=== PATIENT | male | born 1970 | race Caucasian/White ===

== ENCOUNTER 2018-03-23 10:41 | Inpatient (IN) | payer BC, OTHER ==
[2018-03-23 11:01] VITALS: BMI 25.0
[2018-03-23] MEDS ORDERED: Sodium Chloride 0.9% 1,000 ML IV STA (11:49)
[2018-03-23] MEDS ORDERED: cefTRIAXone IV 1 gm in Dextros 50 ML IVPB ONE (12:15)
[2018-03-23] MEDS ORDERED: Sodium Chloride 0.9% 1,000 ML ONE (12:15)
[2018-03-23 12:17] LABS: BASO # 0.1 K/uL (0.0-0.2); BASO % 0.8 % (0.0-2.0); EOS % 0.2 % (0.0-4.0); HEMOGLOBIN 13.1 g/dL (12.0-18.0); LYMPH % 6.8 % (20.0-40.0); MEAN CELL VOLUME 82.1 fL (80.0-94.0); MEAN CORPUSCULAR HEMOGLOBIN 27.8 pg (27.0-31.0); MEAN CORPUSCULAR HGB CONC 33.9 g/dL (33.0-37.0); MEAN PLATELET VOLUME 7.9 fL (7.2-11.7); MONO # 1.3 K/uL (0.0-0.8); MONO % 8.9 % (0.0-10.0); NEUT # 12.4 K/uL (1.8-7.0); NEUT % 83.3 % (50.0-75.0); PLATELET COUNT 329 K/uL (130-400); RBC 4.71 Mil/uL (4.40-5.90); RED CELL DISTRIBUTION WIDTH 13.2 % (11.5-14.5); WHITE BLOOD COUNT 14.9 K/uL (4.8-10.8)
--- NOTE | 2018-03-23 12:29 | C.PDOC ---
History Of Present Illness 47yo male, comes to ER stating for the past 2 weeks he has had dysuria, lower abdominal pain and testicular discomfort. Patient states he was evaluated by his urologist Dr. Curran and was prescribed bactrim. Patient took bactrim with no relief of symptoms. He states since yesterday, he has had fever, nausea and right flank pain. Patient denies any vomiting, diarrhea, hematuria and offers no additional complaints. Time Seen by Provider: 03/23/18 11:35 Chief Complaint (Nursing): Male Genitourinary History Per: Patient History/Exam Limitations: no limitations Onset/Duration Of Symptoms: Persistent Current Symptoms Are (Timing): Still Present Quality Of Discomfort: "Pain" Associated Symptoms: Fever, Urinary Symptoms. denies: Vomiting, Diarrhea Additional History Per: Patient Past Medical History Reviewed: Historical Data, Nursing Documentation, Vital Signs Vital Signs: Last Vital Signs Temp 98.5 F 03/23/18 15:44 Pulse 104 H 03/23/18 15:44 Resp 20 03/23/18 15:44 BP 138/78 03/23/18 15:44 Pulse Ox 98 03/23/18 16:08 - Medical History PMH: No Chronic Diseases Surgical History: No Surg Hx Family History: States: No Known Family Hx - Social History Hx Alcohol Use: No Hx Substance Use: No - Immunization History Hx Tetanus Toxoid Vaccination: No Hx Influenza Vaccination: No Hx Pneumococcal Vaccination: No Review Of Systems Except As Marked, All Systems Reviewed And Found Negative. Constitutional: Positive for: Fever Gastrointestinal: Positive for: Abdominal Pain. Negative for: Vomiting, Diarrhea Genitourinary: Positive for: Dysuria. Negative for: Frequency, Hematuria Physical Exam - Physical Exam Appears: Non-toxic, No Acute Distress Skin: Warm, Dry Head: Atraumatic, Normacephalic Eye(s): bilateral: Normal Inspection Neck: Normal ROM, Supple Chest: Symmetrical Cardiovascular: Rhythm Regular Respiratory: Normal Breath Sounds Gastrointestinal/Abdominal: Soft, No Tenderness, No Guarding, No Rebound Back: CVA Tenderness (right), No Vertebral Tenderness Extremity: Normal ROM, No Pedal Edema Neurological/Psych: Oriented x3, Normal Speech, Normal Cognition, Normal Motor, Normal Sensation ED Course And Treatment - Laboratory Results Result Diagrams: 03/23/18 12:12 03/23/18 12:12 O2 Sat by Pulse Oximetry: 98 (RA) Pulse Ox Interpretation: Normal - CT Scan/US Renal US Other Rad Studies (CT/US): Radiology Report Reviewed CT/US Interpretation: FINDINGS: RIGHT KIDNEY: Measures: 15.1 x 6.2 x 7.7 cm. Normal in size, contour and echogenicity. No stone, solid mass lesion or hydronephrosis visualized. LEFT KIDNEY: Measures: 13.6 x 7.0 x 8.1 cm. Normal in size, contour and echogenicity. No stone, solid mass lesion or hydronephrosis visualized. OTHER FINDINGS: Urinary bladder is decompressed. IMPRESSION: Unremarkable renal sonogram. Testicular US Other Rad Studies (CT/US): Radiology Report Reviewed CT/US Interpretation: FINDINGS: RIGHT TESTICLE: Measures 4.3 x 1.9 x 2.9 cm. Normal echotexture and flow. RIGHT EPIDIDYMIS: Epididymal head measures 0.8 x 0.7 x 1.1 cm. Grossly unremarkable appearance with normal flow. LEFT TESTICLE: Measures 4.1 x 2.2 x 2.7 cm. Normal echotexture and flow. LEFT EPIDIDYMIS: Epididymal head measures 0.9 x 0.4 x 1.1 cm. Grossly unremarkable appearance with normal flow. HYDROCELE: None. VARICOCELE: None. OTHER FINDINGS: None. IMPRESSION: Unremarkable scrotal ultrasound examination. No evidence of testicular torsion bilaterally. Progress Note: Labs and UA ordered; blood and urine culture sent. Renal US and Testicular US ordered. Patient given IV Fluids, IV Rocephin and Tylenol PO. Case was d/w Urologist who agreed with tx with Rocephin and [facility] case was d/w Hospitalist who accepted patient for observation to [place]. Disposition - Disposition Disposition: HOSPITALIZED Disposition Time: 14:38 Condition: STABLE - Clinical Impression Clinical Impression: Pyelonephritis - PA / FINANCE OFFICER / Resident Statement MD/DO has reviewed & agrees with the documentation as recorded. - Scribe Statement The provider has reviewed the documentation as recorded by the Eloisae Celestina Silva Provider Attestation: All medical record entries made by the Scribe were at my direction and personally dictated by me. I have reviewed the chart and agree that the record accurately reflects my personal performance of the history, physical exam, medical decision making, and the department course for this patient. I have also personally directed, reviewed, and agree with the discharge instructions and disposition. Decision To Admit - Pt Status Changed To: Hospital Disposition Of: Observation - . Bed Request Type: Regular Admitting Physician: Ursula Dominguez Patient Diagnosis: Pyelonephritis
[2018-03-23 12:38] LABS: BANDS 4 % (0-2); LYMPHOCYTE 5 % (20-40); MONOCYTE 9 % (0-10); NEUTROPHIL 82 % (50-75); PLATELET ESTIMATE NORMAL (NORMAL); TOTAL CELLS COUNTED 100
[2018-03-23 12:40] LABS: SQUAMOUS EPITHIAL < 1 /hpf (0-5); URINE BACTERIA OCC (<OCC); URINE BILIRUBIN NEGATIVE (NEGATIVE); URINE BLOOD NEGATIVE (NEGATIVE); URINE CLARITY Hazy (Clear); URINE COLOR Yellow (YELLOW); URINE GLUCOSE (UA) 3+ mg/dL (Normal); URINE LEUKOCYTE ESTERASE 3+ Leu/uL (Negative); URINE PROTEIN 1+ mg/dL (NEGATIVE); URINE UROBILINOGEN NORMAL mg/dL (0.2-1.0)
[2018-03-23 12:48] LABS: ALB/GLOB RATIO 1.2 (1.0-2.1); ALBUMIN 4.3 g/dL (3.5-5.0); ALT/SGPT 35 U/L (21-72); AST/SGOT 23 U/L (17-59); BLOOD UREA NITROGEN 6 mg/dL (9-20); CALCIUM 9.4 mg/dl (8.6-10.4); GFR AFRICAN-AMERICAN > 60; GFR NON-AFRICAN AMERICAN > 60; LIPASE 98 U/L (23-300)
--- NOTE | 2018-03-23 13:40 | US ---
Date of service: 03/23/2018 HISTORY: scrotal pain TECHNIQUE: Realtime sonography through the scrotum with color and doppler flow. COMPARISON: None Available. FINDINGS: RIGHT TESTICLE: Measures 4.3 x 1.9 x 2.9 cm. Normal echotexture and flow. RIGHT EPIDIDYMIS: Epididymal head measures 0.8 x 0.7 x 1.1 cm. Grossly unremarkable appearance with normal flow. LEFT TESTICLE: Measures 4.1 x 2.2 x 2.7 cm. Normal echotexture and flow. LEFT EPIDIDYMIS: Epididymal head measures 0.9 x 0.4 x 1.1 cm. Grossly unremarkable appearance with normal flow. HYDROCELE: None. VARICOCELE: None. OTHER FINDINGS: None. IMPRESSION: Unremarkable scrotal ultrasound examination. No evidence of testicular torsion bilaterally.
--- NOTE | 2018-03-23 13:42 | US ---
Date of service: 03/23/2018 PROCEDURE: Ultrasound of the Kidneys HISTORY: right flank pain/fever/testicular pain COMPARISON: None available. TECHNIQUE: Sonogram of the kidneys. FINDINGS: RIGHT KIDNEY: Measures: 15.1 x 6.2 x 7.7 cm. Normal in size, contour and echogenicity. No stone, solid mass lesion or hydronephrosis visualized. LEFT KIDNEY: Measures: 13.6 x 7.0 x 8.1 cm. Normal in size, contour and echogenicity. No stone, solid mass lesion or hydronephrosis visualized. OTHER FINDINGS: Urinary bladder is decompressed. IMPRESSION: Unremarkable renal sonogram.
--- NOTE | 2018-03-23 15:11 | CARD ---
APPROVED REPORT Date of service: 03/23/2018 EKG Measurement Heart [id number] <Conclusion> Sinus tachycardia Otherwise normal ECG
[2018-03-23 15:25] LABS: VENOUS BLOOD GAS BASE EXCESS 0.3 mmol/L (0.0-2.0); VENOUS BLOOD GAS PCO2 42 mmHg (40-60); VENOUS BLOOD GAS PO2 26 mm/Hg (30-55); VENOUS BLOOD PH 7.39 (7.32-7.43)
[2018-03-23] MEDS ORDERED: Morphine 4 MG/ML VIAL ONE (15:44)
[2018-03-23 15:45] VITALS: RESP 20
--- NOTE | 2018-03-23 15:45 | CP.PCM.HP ---
History of Present Illness - History of Present Illness History of Present Illness: CC: kidney pain 47 year old male with history of type II diabetes presents to ED with right flank pain. Patient states that he started experiencing pain on urination 2 weeks ago, as well as increased urinary frequency. After experiencing a week of this pain, patient went to see his PMD, Dr. Wesley Curran. This physician prescribed Bactrim 800-160 BID for 10 days. Patient came in today because last night he woke up many times to urinate and has been unable to sleep for the past several days. Patient now describes the pain as 10/10 right sided flank pain, nonradiating that is constant and feels worse after urination. Patient notes that he has had 2 additional UTIs in the past year, with this as the third episode. Patient reports episodes of tingling in lower extremity that has been present for last 4 months. He has been unable to follow up with his consulting psychiatrist (who he normally sees every 3 months), because he no longer has insurance coverage and is currently unemployed. PMH: DM II PSH: repair or ureterovesicular fistulas X2 FHx: Father-CVD ( at 70yo), HTN, DM Mother- HTN, DM Social Hx: denies tobacco, EtOH, Drug use; lives at home with . Currently unemplyed, used to be a cook. PMD: Dr. Chen Code status: full code Review of Systems Pertinent Positives: Fever, chills, weakness, headache, dizziness, tachycardia, dysuria, urinary freq, LE paresthesia, easy bruising/bleeding, orthostasis, reduced appetite due to pain, 10lb weight loss, chronic vision changes Pertinent Negatives: chest pain, palpitations, dyspnea, sore throat, abd pain, nausea/vomiting, diarrhea, constipation, Present on Admission - Present on Admission Any Indicators Present on Admission: No Review of Systems - Constitutional Constitutional: Chills, Fever, Headache, Weight Loss, Weakness. absent: Increased Appetite - EENT Eyes: Change in Vision. absent: Pain Ears: Dizziness. absent: Tinnitus Nose/Mouth/Throat: absent: Dry Mouth, Sore Throat - Cardiovascular Cardiovascular: Orthopnea, Rapid Heart Rate. absent: Chest Pain, Dyspnea, Lightheadedness, Palpitations, Pedal Edema - Respiratory Respiratory: absent: Cough, Dyspnea, Wheezing - Gastrointestinal Gastrointestinal: absent: Abdominal Pain, Constipation, Diarrhea, Nausea, Vomiting - Genitourinary Genitourinary: Dysuria, Urinary Frequency, Freq UTI - Musculoskeletal Musculoskeletal: Tingling. absent: Back Pain, Numbness - Integumentary Integumentary: absent: Rash, Skin Ulcer, Jaundice - Neurological Neurological: Tingling, Weakness. absent: Dizziness, Loss of Vision, Syncope - Psychiatric Psychiatric: absent: Anxiety, Confusion Past Patient History - Past Social History Smoking Status: Never Smoked - ENDOCRINE/METABOLIC Hx Endocrine Disorders: Yes Hx Diabetes Mellitus Type 2: Yes - GENITOURINARY/GYNECOLOGICAL Hx Genitourinary Disorders: Yes Other/Comment: kidney problems - PSYCHIATRIC Hx Substance Use: No - SURGICAL HISTORY Hx Surgeries: No Meds Allergies/Adverse Reactions: Allergies Allergy/AdvReac Type Severity Reaction Status Date / Time No Known Allergies Allergy Verified 03/23/18 11:00 Physical Exam - Constitutional Appears: Non-toxic, No Acute Distress - Head Exam Head Exam: NORMAL INSPECTION, NORMOCEPHALIC - Eye Exam Eye Exam: EOMI, Normal appearance. absent: Nystagmus, Scleral icterus Pupil Exam: NORMAL ACCOMODATION - ENT Exam ENT Exam: Mucous Membranes Moist, Normal Exam - Neck Exam Neck exam: Positive for: Normal Inspection. Negative for: Lymphadenopathy, Tenderness, Thyromegaly - Respiratory Exam Respiratory Exam: Clear to Auscultation Bilateral, NORMAL BREATHING PATTERN. absent: Rales, Wheezes - Cardiovascular Exam Cardiovascular Exam: Tachycardia, REGULAR RHYTHM, +S1, +S2 - GI/Abdominal Exam GI & Abdominal Exam: Normal Bowel Sounds, Soft. absent: Distended, Firm, Tenderness - Extremities Exam Extremities exam: Positive for: normal inspection. Negative for: calf tenderness, pedal edema - Back Exam Back exam: CVA tenderness (R), NORMAL INSPECTION. absent: CVA tenderness (L), vertebral tenderness - Neurological Exam Neurological exam: Alert, CN II-XII Intact, Oriented x3 - Skin Skin Exam: Intact, Normal Color Results - Vital Signs Recent Vital Signs: Last Vital Signs Temp 97.4 F L 03/23/18 13:57 Pulse 116 H 03/23/18 11:01 Resp 18 03/23/18 11:01 BP 122/72 03/23/18 11:01 Pulse Ox 98 03/23/18 15:12 - Labs Result Diagrams: 03/23/18 12:12 03/23/18 12:12 Labs: Laboratory Results - last 24 hr 03/23/18 03/23/18 03/23/18 12:12 12:12 12:12 WBC 14.9 H RBC 4.71 Hgb 13.1 Hct 38.7 MCV 82.1 MCH 27.8 MCHC 33.9 RDW 13.2 Plt Count 329 MPV 7.9 Neut % (Auto) 83.3 H Lymph % (Auto) 6.8 L [place] % (Auto) 8.9 Eos % (Auto) 0.2 Baso % (Auto) 0.8 Neut # (Auto) 12.4 H Lymph # (Auto) 1.0 [place] # (Auto) 1.3 H Eos # (Auto) 0.0 Baso # (Auto) 0.1 Neutrophils % (Manual) 82 H Band Neutrophils % 4 H Lymphocytes % (Manual) 5 L Monocytes % (Manual) 9 Platelet Estimate Normal RBC Morphology Normal pO2 VBG pH VBG pCO2 VBG HCO3 VBG Total CO2 VBG O2 Sat (Calc) VBG Base Excess VBG Potassium Glucose Lactate Sodium 136 Potassium 3.7 Chloride 96 L Carbon Dioxide 25 Anion Gap 18 BUN 6 L Creatinine 0.5 L Est GFR ( Amer) > 60 Est GFR (Non-Af Amer) > 60 Random Glucose 266 H Calcium 9.4 Total Bilirubin 0.8 AST 23 ALT 35 Alkaline Phosphatase 168 H Total Protein 8.0 Albumin 4.3 Globulin 3.7 Albumin/Globulin Ratio 1.2 Lipase 98 Venous Blood Potassium Urine Color Yellow Urine Clarity Hazy Urine pH 6.0 Ur Specific [place] 1.017 Urine Protein 1+ H Urine Glucose (UA) 3+ H Urine Ketones 1+ H Urine Blood Negative Urine Nitrate Negative Urine Bilirubin Negative Urine Urobilinogen Normal Ur Leukocyte Esterase 3+ H Urine WBC (Auto) 568 H Urine RBC (Auto) 5 H Ur Squamous Epith Cells < 1 Urine Bacteria Occ H 03/23/18 15:21 WBC RBC Hgb Hct MCV MCH MCHC RDW Plt Count MPV Neut % (Auto) Lymph % (Auto) [place] % (Auto) Eos % (Auto) Baso % (Auto) Neut # (Auto) Lymph # (Auto) [place] # (Auto) Eos # (Auto) Baso # (Auto) Neutrophils % (Manual) Band Neutrophils % Lymphocytes % (Manual) Monocytes % (Manual) Platelet Estimate RBC Morphology pO2 26 L VBG pH 7.39 VBG pCO2 42 VBG HCO3 23.8 VBG Total CO2 26.7 VBG O2 Sat (Calc) 54.1 VBG Base Excess 0.3 VBG Potassium 3.8 Glucose 241 H Lactate 1.0 Sodium 136.0 Potassium Chloride 103.0 Carbon Dioxide Anion Gap BUN Creatinine Est GFR ( Amer) Est GFR (Non-Af Amer) Random Glucose Calcium Total Bilirubin AST ALT Alkaline Phosphatase Total Protein Albumin Globulin Albumin/Globulin Ratio Lipase Venous Blood Potassium 3.8 Urine Color Urine Clarity Urine pH Ur Specific [place] Urine Protein Urine Glucose (UA) Urine Ketones Urine Blood Urine Nitrate Urine Bilirubin Urine Urobilinogen Ur Leukocyte Esterase Urine WBC (Auto) Urine RBC (Auto) Ur Squamous Epith Cells Urine Bacteria Assessment & Plan - Assessment and Plan (Free Text) Plan: Sepsis On admission WBC 14.9; HR 116; T 101.5 UA: 1+ protein, 3+ glucose, 1+ ketones, 3+ leukocyte esterase, WBC 568, Urine bacteria- occ bacteria Likely pyelo>>UTI (with fever and flank tenderness R>L) Renal U/S- unremarkable Testicular U/S- unremarkable; no evidence of torsion bilaterally 1L NS 125 cc/hr Ciprofloxacin 400mg IVPB q12 shana Urine Cultures pending; Blood cultures pending Tylenol 650mg po q6 prn 1x dose 1gram 100mls/hr Ceftriaxone 1x dose Tylenol 650mg po 1 bolus of 1L NS 1x dose 4mg of morphine IVP Diabetes Mellitus ISS low dose ACHS Accuchecks Hypoglycemic protocol Hold Metformin; Carb diet Prophylaxis Heparin SC 5000 units q8h GI PPx: not indicated at this time
[2018-03-23] MEDS ORDERED: Dextrose 50% SYRINGE Inj (50 ml) IV PRN (16:25)
[2018-03-23] MEDS ORDERED: Glucagon Recombinant 1 mg Inj IM PRN (16:25)
[2018-03-23] MEDS: Ciprofloxacin 400mg/200ml D5W 400 MG/200 ML BAG IVPB SCH (16:42)
[2018-03-23] MEDS: (Novolog) Insulin Aspart, Recombinant 100 u/ml 10 ml vial SC SCH ×2 (16:50→21:59)
[2018-03-23] MEDS: Sodium Chloride 0.9% 1,000 ML IV SCH (17:00)
[2018-03-24] MEDS: Sodium Chloride 0.9% 1,000 ML IV SCH ×4 (00:45→17:01)
[2018-03-24] MEDS: Ciprofloxacin 400mg/200ml D5W 400 MG/200 ML BAG IVPB SCH ×2 (04:28→17:02)
[2018-03-24 07:25] LABS: BASO # 0.1 K/uL (0.0-0.2); BASO % 0.5 % (0.0-2.0); EOS % 0.1 % (0.0-4.0); HEMOGLOBIN 12.5 g/dL (12.0-18.0); LYMPH # 1.5 K/uL (1.0-4.3); LYMPH % 14.5 % (20.0-40.0); MEAN CELL VOLUME 81.8 fL (80.0-94.0); MEAN CORPUSCULAR HGB CONC 34.3 g/dL (33.0-37.0); MEAN PLATELET VOLUME 8.2 fL (7.2-11.7); MONO # 0.9 K/uL (0.0-0.8); MONO % 8.9 % (0.0-10.0); NEUT # 8.1 K/uL (1.8-7.0); RBC 4.47 Mil/uL (4.40-5.90); WHITE BLOOD COUNT 10.6 K/uL (4.8-10.8)
[2018-03-24 07:33] LABS: ALB/GLOB RATIO 1.1 (1.0-2.1); ALBUMIN 3.5 g/dL (3.5-5.0); ALT/SGPT 37 U/L (21-72); AST/SGOT 27 U/L (17-59); BLOOD UREA NITROGEN 5 mg/dL (9-20); CALCIUM 8.6 mg/dl (8.6-10.4); GFR AFRICAN-AMERICAN > 60; GFR NON-AFRICAN AMERICAN > 60
[2018-03-24] MEDS: (Novolog) Insulin Aspart, Recombinant 100 u/ml 10 ml vial SC SCH ×4 (08:16→21:54)
--- NOTE | 2018-03-24 10:40 | CP.PCM.PN ---
Subjective - Date & Time of Evaluation Date of Evaluation: 03/24/18 Time of Evaluation: 10:37 - Subjective Subjective: PGY-1 Medicine Progress Note Patient seen and examined at bedside. Patient reports fever overnight was given Tylenol and is afebrile currently. Patient reports right flank but reduced from 10/10 being constant in nature to 7/10 with periodic pain. Patient reports increased urinary frequency with 7 trips to the bathroom overnight but states the dysuria has improved. Patient reports fevers and chills however denies chest pain, sob, nausea/vomiting, headaches, constipation or diarrhea. Objective - Vital Signs/Intake and Output Vital Signs (last 24 hours): Temp Pulse Resp BP Pulse Ox 98.7 F 100 H 20 112/71 96 03/24/18 07:00 03/24/18 07:00 03/24/18 07:00 03/24/18 07:00 03/24/18 07:00 Intake and Output: 03/24/18 03/24/18 06:59 18:59 Intake Total 1250 Balance 1250 - Medications Medications: Current Medications Acetaminophen (Tylenol 325mg Tab) 650 mg PO Q6 PRN PRN Reason: Fever >100.4 F Last Admin: 03/24/18 08:20 Dose: 650 mg Dextrose (Dextrose 50% Inj) 0 ml IV STAT PRN; Protocol PRN Reason: Hypoglycemia Protocol Dextrose (Glutose 15) 0 gm PO ONCE PRN; Protocol PRN Reason: Hypoglycemia Protocol Glucagon (Glucagen Diagnostic Kit) 0 mg IM STAT PRN; Protocol PRN Reason: Hypoglycemia Protocol Heparin Sodium (Porcine) (Heparin) 5,000 units SC Q8 [facility] Last Admin: 03/24/18 06:02 Dose: 5,000 units Ciprofloxacin (Cipro 400mg/200ml Dsw) 400 mg in 200 mls @ 133 mls/hr IVPB Q12H [facility]NA PRN Reason: Protocol Last Admin: 03/24/18 04:28 Dose: 133 mls/hr Dextrose (Dextrose 5% In Water 1000 Ml) 1,000 mls @ 0 mls/hr IV .Q0M PRN; Protocol; Per Protocol PRN Reason: Hypoglycemia Protocol Sodium Chloride (Sodium Chloride 0.9%) 1,000 mls @ 125 mls/hr IV .Q8H [facility] Last Admin: 03/24/18 08:17 Dose: Not Given Insulin Aspart (Novolog) 0 unit SC ACHS [facility] PRN Reason: Protocol Last Admin: 03/24/18 08:16 Dose: 3 units Pneumococcal Polyvalent Vaccine (Pneumovax 23 Vaccine) 0.5 ml IM .ONCE ONE Stop: 03/25/18 10:01 - Labs Labs: 03/24/18 07:15 03/24/18 07:15 APTT 35 SECONDS (21-34) H 03/24/18 07:15 - Constitutional Appears: Non-toxic, No Acute Distress - Head Exam Head Exam: NORMAL INSPECTION, NORMOCEPHALIC - Eye Exam Eye Exam: EOMI, Normal appearance. absent: Nystagmus, Scleral icterus - Respiratory Exam Respiratory Exam: Clear to Ausculation Bilateral, NORMAL BREATHING PATTERN. absent: Wheezes, Respiratory Distress - Cardiovascular Exam Cardiovascular Exam: Tachycardia, REGULAR RHYTHM, +S1, +S2. absent: Murmur - GI/Abdominal Exam GI & Abdominal Exam: Soft, Normal Bowel Sounds. absent: Distended, Firm, Tenderness - Extremities Exam Extremities Exam: Normal Inspection. absent: Calf Tenderness, Pedal Edema - Back Exam Back Exam: CVA tenderness (R), NORMAL INSPECTION. absent: CVA tenderness (L), vertebral tenderness - Neurological Exam Neurological Exam: Alert, Awake, Oriented x3. absent: Normal Gait - Psychiatric Exam Psychiatric exam: Normal Affect, Normal Mood - Skin Skin Exam: Intact, Normal Color Assessment and Plan - Assessment and Plan (Free Text) Assessment: Patient is a 47 y.o male with PMH of DM2 and 2 episodes of UTI in past year; patient has been having UTI symptoms for 2 weeks with burning sensation and increased frequency; went to see urologist a week ago was prescribed bactrim for outpatient treatment; symptoms did not resolved for 1 week with progressively increasing dysuria with burning sensation prompting the patient to come to the hospital Plan: Pyelonephritis Does not meet sepsis criteria currently; On admission WBC 14.9; HR 116; T 101.5 WBC 10.6 (14.6 on 03/23/18() UA: 1+ protein, 3+ glucose, 1+ ketones, 3+ leukocyte esterase, WBC 568, Urine bacteria- occ bacteria Renal U/S- unremarkable Testicular U/S- unremarkable; no evidence of torsion bilaterally Continue Ciprofloxacin 400mg IVPB q12 shana; WBC trending down; patient clinically improving Urine cultures pending Blood cultures prelim read- gram negative rods Diabetes Meillitus A1C pending ISS low dose ACHS Accuchecks Hypoglycemic protocol Hold Metformin in setting of pyelonephritis; Carb diet Fever Afebrile currently Tylenol 650mg po q6 prn Prophylaxis Heparin SC 5000 units q8h GI PPx: not indicated at this time Medical Management discussed with Dr. Smith
[2018-03-25] MEDS: Sodium Chloride 0.9% 1,000 ML IV SCH ×5 (00:30→16:30)
[2018-03-25] MEDS: Ciprofloxacin 400mg/200ml D5W 400 MG/200 ML BAG IVPB SCH ×2 (04:10→16:35)
[2018-03-25 07:45] LABS: BASO % 0.7 % (0.0-2.0); EOS # 0.1 K/uL (0.0-0.7); EOS % 2.2 % (0.0-4.0); HEMOGLOBIN 12.2 g/dL (12.0-18.0); LYMPH # 1.5 K/uL (1.0-4.3); MEAN CELL VOLUME 82.5 fL (80.0-94.0); MEAN CORPUSCULAR HEMOGLOBIN 28.2 pg (27.0-31.0); MEAN CORPUSCULAR HGB CONC 34.2 g/dL (33.0-37.0); MEAN PLATELET VOLUME 7.9 fL (7.2-11.7); MONO # 0.8 K/uL (0.0-0.8); MONO % 13.9 % (0.0-10.0); NEUT # 3.5 K/uL (1.8-7.0); NEUT % 58.2 % (50.0-75.0); RBC 4.32 Mil/uL (4.40-5.90); RED CELL DISTRIBUTION WIDTH 12.7 % (11.5-14.5); WHITE BLOOD COUNT 6.1 K/uL (4.8-10.8)
[2018-03-25 07:59] LABS: ALB/GLOB RATIO 1.1 (1.0-2.1); ALBUMIN 3.4 g/dL (3.5-5.0); ALT/SGPT 58 U/L (21-72); AST/SGOT 45 U/L (17-59); BLOOD UREA NITROGEN 5 mg/dL (9-20); CALCIUM 8.6 mg/dl (8.6-10.4); GFR AFRICAN-AMERICAN > 60; GFR NON-AFRICAN AMERICAN > 60
[2018-03-25] MEDS: (Novolog) Insulin Aspart, Recombinant 100 u/ml 10 ml vial SC SCH ×4 (08:30→22:22)
[2018-03-25] MEDS ORDERED: Pneumococcal 23-Valent Vaccine IM ONE (10:00)
[2018-03-25] MEDS ORDERED: Glucagon Recombinant 1 mg Inj IM PRN (12:47)
[2018-03-25] MEDS ORDERED: Dextrose 50% SYRINGE Inj (50 ml) IV PRN (12:47)
--- NOTE | 2018-03-25 12:56 | CP.PCM.PN ---
<Janis Ortega - Last Filed: 03/25/18 16:08> Subjective - Date & Time of Evaluation Date of Evaluation: 03/25/18 Time of Evaluation: 12:50 - Subjective Subjective: PGY-1 Medicine Progress Note for Dr. Smith's service Patient seen and examined at bedside. Patient reports improved right flank pain from 6 to 3/10 today. Patient reports no burning with urination however still reports nocturia of 3 episodes last night. Patient denies hematuria, chest pain , shortness of breath, n/v, constipation or diarrhea, and dysuria. No acute events overnight as per nursing. Objective - Vital Signs/Intake and Output Vital Signs (last 24 hours): Temp Pulse Resp BP Pulse Ox 98.2 F 85 20 108/70 98 03/25/18 07:55 03/25/18 07:55 03/25/18 07:55 03/25/18 07:55 03/25/18 07:55 Intake and Output: 03/25/18 03/25/18 06:59 18:59 Intake Total 400 Balance 400 - Medications Medications: Current Medications Acetaminophen (Tylenol 325mg Tab) 650 mg PO Q6 PRN PRN Reason: Fever >100.4 F Last Admin: 03/24/18 08:20 Dose: 650 mg Acetaminophen (Tylenol 325mg Tab) 650 mg PO Q6 PRN PRN Reason: Pain, moderate (4-7) Last Admin: 03/24/18 22:36 Dose: 650 mg Dextrose (Dextrose 50% Inj) 0 ml IV STAT PRN; Protocol PRN Reason: Hypoglycemia Protocol Dextrose (Glutose 15) 0 gm PO ONCE PRN; Protocol PRN Reason: Hypoglycemia Protocol Dextrose (Dextrose 50% Inj) 0 ml IV STAT PRN; Protocol PRN Reason: Hypoglycemia Protocol Dextrose (Glutose 15) 0 gm PO ONCE PRN; Protocol PRN Reason: Hypoglycemia Protocol Glucagon (Glucagen Diagnostic Kit) 0 mg IM STAT PRN; Protocol PRN Reason: Hypoglycemia Protocol Glucagon (Glucagen Diagnostic Kit) 0 mg IM STAT PRN; Protocol PRN Reason: Hypoglycemia Protocol Heparin Sodium (Porcine) (Heparin) 5,000 units SC Q8 SHANA Last Admin: 03/25/18 05:27 Dose: 5,000 units Ciprofloxacin (Cipro 400mg/200ml Dsw) 400 mg in 200 mls @ 133 mls/hr IVPB Q12H SHANA PRN Reason: Protocol Last Admin: 03/25/18 04:10 Dose: 133 mls/hr Dextrose (Dextrose 5% In Water 1000 Ml) 1,000 mls @ 0 mls/hr IV .Q0M PRN; Protocol; Per Protocol PRN Reason: Hypoglycemia Protocol Sodium Chloride (Sodium Chloride 0.9%) 1,000 mls @ 125 mls/hr IV .Q8H [facility] Last Admin: 03/25/18 08:31 Dose: Not Given Dextrose (Dextrose 5% In Water 1000 Ml) 1,000 mls @ 0 mls/hr IV .Q0M PRN; Protocol; Per Protocol PRN Reason: Hypoglycemia Protocol Insulin Aspart (Novolog) 0 unit SC ACHS [facility] PRN Reason: Protocol Last Admin: 03/25/18 12:02 Dose: 3 units Insulin Human Regular (Novolin R) 0 unit SC ACHS [facility] PRN Reason: Protocol - Labs Labs: 03/25/18 07:28 03/25/18 07:28 APTT 35 SECONDS (21-34) H 03/24/18 07:15 - Constitutional Appears: Non-toxic, No Acute Distress - Head Exam Head Exam: NORMAL INSPECTION, NORMOCEPHALIC - Eye Exam Eye Exam: EOMI, Normal appearance. absent: Nystagmus, Scleral icterus - Respiratory Exam Respiratory Exam: Clear to Ausculation Bilateral, Wheezes, NORMAL BREATHING PATTERN. absent: Decreased Breath Sounds, Rales (/), Respiratory Distress - Cardiovascular Exam Cardiovascular Exam: REGULAR RHYTHM, +S1, +S2. absent: Murmur - GI/Abdominal Exam GI & Abdominal Exam: Soft, Normal Bowel Sounds. absent: Distended, Firm, Guarding, Tenderness - Extremities Exam Extremities Exam: Normal Inspection. absent: Calf Tenderness, Pedal Edema - Back Exam Back Exam: CVA tenderness (R), NORMAL INSPECTION. absent: CVA tenderness (L) - Neurological Exam Neurological Exam: Alert, Awake, Oriented x3 - Psychiatric Exam Psychiatric exam: Normal Affect, Normal Mood - Skin Skin Exam: Intact, Normal Color. absent: Rash Assessment and Plan - Assessment and Plan (Free Text) Assessment: Patient is a 47 y.o male with PMH of DM2 and 2 episodes of UTI in past year; patient has been having UTI symptoms for 2 weeks with burning sensation and increased frequency; went to see urologist a week ago was prescribed bactrim for outpatient treatment; symptoms did not resolved for 1 week with progressively increasing dysuria with burning sensation prompting the patient to come to the hospital Plan: Pyelonephritis Does not meet sepsis criteria currently; On admission WBC 14.9; HR 116; T 101.5 WBC 6.1 (14.6 on 03/23/18) UA: 1+ protein, 3+ glucose, 1+ ketones, 3+ leukocyte esterase, WBC 568, Urine bacteria- occ bacteria Renal U/S- unremarkable Testicular U/S- unremarkable; no evidence of torsion bilaterally Continue Ciprofloxacin 400mg IVPB q12 shana; WBC trending down; patient clinically improving Urine cultures positive for E coli sensitive to Cipro Blood cultures prelim read- gram negative rods- awaiting full read; Diabetes Meillitus A1C 11.6 ISS high dose ACHS Accuchecks Hypoglycemic protocol Hold Metformin in setting of pyelonephritis; Carb diet Fever Afebrile currently Tylenol 650mg po q6 prn Prophylaxis Heparin SC 5000 units q8h GI PPx: not indicated at this time <Waylon Smith H - Last Filed: 03/25/18 17:30> Objective - Vital Signs/Intake and Output Vital Signs (last 24 hours): Temp Pulse Resp BP Pulse Ox 98.0 F 90 20 112/75 98 03/25/18 16:09 03/25/18 16:09 03/25/18 16:09 03/25/18 16:09 03/25/18 16:09 Intake and Output: 03/25/18 03/25/18 06:59 18:59 Intake Total 400 400 Balance 400 400 - Medications Medications: Current Medications Acetaminophen (Tylenol 325mg Tab) 650 mg PO Q6 PRN PRN Reason: Fever >100.4 F Last Admin: 03/24/18 08:20 Dose: 650 mg Acetaminophen (Tylenol 325mg Tab) 650 mg PO Q6 PRN PRN Reason: Pain, moderate (4-7) Last Admin: 03/24/18 22:36 Dose: 650 mg Dextrose (Dextrose 50% Inj) 0 ml IV STAT PRN; Protocol PRN Reason: Hypoglycemia Protocol Dextrose (Glutose 15) 0 gm PO ONCE PRN; Protocol PRN Reason: Hypoglycemia Protocol Dextrose (Dextrose 50% Inj) 0 ml IV STAT PRN; Protocol PRN Reason: Hypoglycemia Protocol Dextrose (Glutose 15) 0 gm PO ONCE PRN; Protocol PRN Reason: Hypoglycemia Protocol Glucagon (Glucagen Diagnostic Kit) 0 mg IM STAT PRN; Protocol PRN Reason: Hypoglycemia Protocol Glucagon (Glucagen Diagnostic Kit) 0 mg IM STAT PRN; Protocol PRN Reason: Hypoglycemia Protocol Heparin Sodium (Porcine) (Heparin) 5,000 units SC Q8 [facility] Last Admin: 03/25/18 13:46 Dose: 5,000 units Ciprofloxacin (Cipro 400mg/200ml Dsw) 400 mg in 200 mls @ 133 mls/hr IVPB Q12H SHANA PRN Reason: Protocol Last Admin: 03/25/18 04:10 Dose: 133 mls/hr Dextrose (Dextrose 5% In Water 1000 Ml) 1,000 mls @ 0 mls/hr IV .Q0M PRN; Protocol; Per Protocol PRN Reason: Hypoglycemia Protocol Sodium Chloride (Sodium Chloride 0.9%) 1,000 mls @ 125 mls/hr IV .Q8H [facility] Last Admin: 03/25/18 08:31 Dose: Not Given Dextrose (Dextrose 5% In Water 1000 Ml) 1,000 mls @ 0 mls/hr IV .Q0M PRN; Protocol; Per Protocol PRN Reason: Hypoglycemia Protocol Insulin Aspart (Novolog) 0 unit SC ACHS [facility] PRN Reason: Protocol Last Admin: 03/25/18 12:02 Dose: 3 units Insulin Human Regular (Novolin R) 0 unit SC ACHS [facility] PRN Reason: Protocol - Labs Labs: 03/25/18 07:28 03/25/18 07:28 APTT 35 SECONDS (21-34) H 03/24/18 07:15 Attending/Attestation - Attestation I have personally seen and examined this patient.: Yes I have fully participated in the care of the patient.: Yes I have reviewed all pertinent clinical information, including history, physical exam and plan: Yes Notes (Text): 03/25/18 17:28 Medical attending: Patient was seen and examined by me. Agree with the above note by the resident The patient was not in any acute distress when we came and saw the patient today. The patient reported the flank discomfort had improved considerably. As mentioned above by the resident, the culture showed + ecoli with sensitivity to cipro so at this time will conitnue with the IV cipro. Depending on how he does tommorow he maybe able to be discharged to home. He would need to follow up with urology. Waylon Smith
[2018-03-25] MEDS: (Novolin R) Insulin Human Regular 100 units/ml vial SC SCH ×2 (16:30→21:44)
[2018-03-26] MEDS: Sodium Chloride 0.9% 1,000 ML IV SCH ×3 (00:51→08:41)
[2018-03-26] MEDS: Ciprofloxacin 400mg/200ml D5W 400 MG/200 ML BAG IVPB SCH (04:47)
[2018-03-26 08:07] VITALS: BP 97/64; PULSE 76; TEMP 98.6; O2SAT 97
[2018-03-26] MEDS: (Novolin R) Insulin Human Regular 100 units/ml vial SC SCH ×2 (08:13→12:15)
[2018-03-26] MEDS: (Novolog) Insulin Aspart, Recombinant 100 u/ml 10 ml vial SC SCH ×2 (08:14→12:15)
[2018-03-26 09:31] LABS: BASO % 0.5 % (0.0-2.0); EOS # 0.2 K/uL (0.0-0.7); EOS % 3.3 % (0.0-4.0); HEMOGLOBIN 12.2 g/dL (12.0-18.0); LYMPH # 1.6 K/uL (1.0-4.3); LYMPH % 24.8 % (20.0-40.0); MEAN CELL VOLUME 82.1 fL (80.0-94.0); MEAN CORPUSCULAR HEMOGLOBIN 27.8 pg (27.0-31.0); MEAN CORPUSCULAR HGB CONC 33.9 g/dL (33.0-37.0); MEAN PLATELET VOLUME 7.9 fL (7.2-11.7); MONO # 0.6 K/uL (0.0-0.8); MONO % 10.1 % (0.0-10.0); NEUT # 3.9 K/uL (1.8-7.0); NEUT % 61.3 % (50.0-75.0); RBC 4.4 Mil/uL (4.40-5.90); RED CELL DISTRIBUTION WIDTH 12.9 % (11.5-14.5); WHITE BLOOD COUNT 6.3 K/uL (4.8-10.8)
[2018-03-26 09:52] LABS: ALB/GLOB RATIO 1.1 (1.0-2.1); ALBUMIN 3.6 g/dL (3.5-5.0); ALT/SGPT 112 U/L (21-72); AST/SGOT 52 U/L (17-59); BLOOD UREA NITROGEN 6 mg/dL (9-20); CALCIUM 9.1 mg/dl (8.6-10.4); GFR AFRICAN-AMERICAN > 60; GFR NON-AFRICAN AMERICAN > 60
--- NOTE | 2018-03-26 14:12 | CP.PCM.DIS ---
<Janis Ortega - Last Filed: 03/26/18 14:19> Provider - Provider Date of Admission: 03/25/18 16:01 Attending physician: Waylon Smith DO Consults: Dr. Curran Time Spent in preparation of Discharge (in minutes): 45 Diagnosis - Discharge Diagnosis (1) Pyelonephritis Status: Acute Hospital Course - Lab Results Lab Results: Micro Results 03/23/18 12:13 Blood Blood Culture - Final Escherichia Coli 03/23/18 12:13 Blood Gram Stain - Final 03/23/18 15:11 Blood Blood Culture - Final Escherichia Coli 03/23/18 15:11 Blood Gram Stain - Final 03/23/18 12:12 Urine Urine Culture - Final Escherichia Coli Most Recent Lab Values WBC 6.3 K/uL (4.8-10.8) 03/26/18 09:22 RBC 4.40 Mil/uL (4.40-5.90) 03/26/18 09:22 Hgb 12.2 g/dL (12.0-18.0) 03/26/18 09:22 Hct 36.1 % (35.0-51.0) 03/26/18 09:22 MCV 82.1 fL (80.0-94.0) 03/26/18 09:22 MCH 27.8 pg (27.0-31.0) 03/26/18 09:22 MCHC 33.9 g/dL (33.0-37.0) 03/26/18 09:22 RDW 12.9 % (11.5-14.5) 03/26/18 09:22 Plt Count 336 K/uL (130-400) 03/26/18 09:22 MPV 7.9 fL (7.2-11.7) 03/26/18 09:22 Neut % (Auto) 61.3 % (50.0-75.0) 03/26/18 09:22 Lymph % (Auto) 24.8 % (20.0-40.0) 03/26/18 09:22 Charles % (Auto) 10.1 % (0.0-10.0) H 03/26/18 09:22 Eos % (Auto) 3.3 % (0.0-4.0) 03/26/18 09:22 Baso % (Auto) 0.5 % (0.0-2.0) 03/26/18 09:22 Neut # (Auto) 3.9 K/uL (1.8-7.0) 03/26/18 09:22 Lymph # (Auto) 1.6 K/uL (1.0-4.3) 03/26/18 09:22 Charles # (Auto) 0.6 K/uL (0.0-0.8) 03/26/18 09:22 Eos # (Auto) 0.2 K/uL (0.0-0.7) 03/26/18 09:22 Baso # (Auto) 0.0 K/uL (0.0-0.2) 03/26/18 09:22 Neutrophils % (Manual) 82 % (50-75) H 03/23/18 12:12 Band Neutrophils % 4 % (0-2) H 03/23/18 12:12 Lymphocytes % (Manual) 5 % (20-40) L 03/23/18 12:12 Monocytes % (Manual) 9 % (0-10) 03/23/18 12:12 Platelet Estimate Normal (NORMAL) 03/23/18 12:12 RBC Morphology Normal 03/23/18 12:12 APTT 35 SECONDS (21-34) H 03/24/18 07:15 pO2 26 mm/Hg (30-55) L 03/23/18 15:21 VBG pH 7.39 (7.32-7.43) 03/23/18 15:21 VBG pCO2 42 mmHg (40-60) 03/23/18 15:21 VBG HCO3 23.8 mmol/L 03/23/18 15:21 VBG Total CO2 26.7 mmol/L (22-28) 03/23/18 15:21 VBG O2 Sat (Calc) 54.1 % (40-65) 03/23/18 15:21 VBG Base Excess 0.3 mmol/L (0.0-2.0) 03/23/18 15:21 VBG Potassium 3.8 mmol/L (3.6-5.2) 03/23/18 15:21 Sodium 136.0 mmol/l (132-148) 03/23/18 15:21 Chloride 103.0 mmol/L (98-107) 03/23/18 15:21 Glucose 241 mg/dl (75-110) H 03/23/18 15:21 Lactate 1.0 mmol/L (0.7-2.1) 03/23/18 15:21 Sodium 137 mmol/L (132-148) 03/26/18 09:22 Potassium 3.6 mmol/L (3.6-5.2) 03/26/18 09:22 Chloride 102 mmol/L (98-107) 03/26/18 09:22 Carbon Dioxide 25 mmol/L (22-30) 03/26/18 09:22 Anion Gap 14 (10-20) 03/26/18 09:22 BUN 6 mg/dL (9-20) L 03/26/18 09:22 Creatinine 0.4 mg/dL (0.8-1.5) L 03/26/18 09:22 Est GFR ( Amer) > 60 03/26/18 09:22 Est GFR (Non-Af Amer) > 60 03/26/18 09:22 POC Glucose (mg/dL) 301 mg/dL (65-110) H 03/26/18 11:04 Random Glucose 328 mg/dL (75-110) H 03/26/18 09:22 Hemoglobin A1c 11.3 % (4.2-6.5) H 03/25/18 07:28 Calcium 9.1 mg/dl (8.6-10.4) 03/26/18 09:22 Phosphorus 3.5 mg/dL (2.5-4.5) 03/26/18 09:22 Magnesium 1.7 mg/dL (1.6-2.3) 03/26/18 09:22 Total Bilirubin 0.4 mg/dL (0.2-1.3) 03/26/18 09:22 AST 52 U/L (17-59) 03/26/18 09:22 ALT 112 U/L (21-72) H D 03/26/18 09:22 Alkaline Phosphatase 259 U/L (38-126) H D 03/26/18 09:22 Total Protein 6.8 g/dL (6.3-8.3) 03/26/18 09:22 Albumin 3.6 g/dL (3.5-5.0) 03/26/18 09:22 Globulin 3.3 gm/dL (2.2-3.9) 03/26/18 09:22 Albumin/Globulin Ratio 1.1 (1.0-2.1) 03/26/18 09:22 Lipase 98 U/L (23-300) 03/23/18 12:12 Venous Blood Potassium 3.8 mmol/L (3.6-5.2) 03/23/18 15:21 Urine Color Yellow (YELLOW) 03/23/18 12:12 Urine Clarity Hazy (Clear) 03/23/18 12:12 Urine pH 6.0 (5.0-8.0) 03/23/18 12:12 Ur Specific [place] 1.017 (1.003-1.030) 03/23/18 12:12 Urine Protein 1+ mg/dL (NEGATIVE) H 03/23/18 12:12 Urine Glucose (UA) 3+ mg/dL (Normal) H 03/23/18 12:12 Urine Ketones 1+ mg/dL (NEGATIVE) H 03/23/18 12:12 Urine Blood Negative (NEGATIVE) 03/23/18 12:12 Urine Nitrate Negative (NEGATIVE) 03/23/18 12:12 Urine Bilirubin Negative (NEGATIVE) 03/23/18 12:12 Urine Urobilinogen Normal mg/dL (0.2-1.0) 03/23/18 12:12 Ur Leukocyte Esterase 3+ Milly/uL (Negative) H 03/23/18 12:12 Urine WBC (Auto) 568 /hpf (0-5) H 03/23/18 12:12 Urine RBC (Auto) 5 /hpf (0-3) H 03/23/18 12:12 Ur Squamous Epith Cells < 1 /hpf (0-5) 03/23/18 12:12 Urine Bacteria Occ (<OCC) H 03/23/18 12:12 - Hospital Course Hospital Course: PMH: DM II PSH: repair or ureterovesicular fistulas X2 FHx: Father-CVD ( at 70yo), HTN, DM Mother- HTN, DM Social Hx: denies tobacco, EtOH, Drug use; lives at home with . Currently unemplyed, used to be a cook. PMD: Dr. Chen Code status: full code Upon Admission: 47 year old male with history of type II diabetes presents to ED with right flank pain. Patient states that he started experiencing pain on urination 2 weeks ago, as well as increased urinary frequency. After experiencing a week of this pain, patient went to see his PMD, Dr. Wesley Curran. This physician prescribed Bactrim 800-160 BID for 10 days. Patient came in today because last night he woke up many times to urinate and has been unable to sleep for the past several days. Patient now describes the pain as 10/ 10 right sided flank pain, nonradiating that is constant and feels worse after urination. Patient notes that he has had 2 additional UTIs in the past year, with this as the third episode. Patient reports episodes of tingling in lower extremity that has been present for last 4 months. 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 Hospital Course: Patient is a 47 yo male who presented to the hospital for right flank pain with dysuria and increased frequency. Patient was febrile on admission with white count. UA, Urine cultures, Blood cultures were ordered; Urine culture was positive for E coli. Patient was treated with ciprofloxacin which was sensitive for the bacteria. As per Dr. Curran, patient is to complete a full 14 day course and was discharged with 10 pills to take outpatient and to followup with his PMD. Discharge Plan: Patient is stable for discharge to home as per Dr. Smith. Patient is instructed to followup with Dr. Curran 1 week after discharge. Patient should continue taking ciprofloxacin (started 03/23) by mouth once daily for the next 10 days ending on 04/05/2018 for the whole 14 day course as recommended by Dr. Curran. Patient is instructed to return to the hospital if symptoms recur or worsen. Patient understands and agrees to the plan as above. Disclaimer: Entailed above is a shortened synopsis of patient's current hospital admission. For full report please refer to the EMR. Discharge Exam - Head Exam Head Exam: NORMAL INSPECTION, NORMOCEPHALIC - Eye Exam Eye Exam: EOMI, Normal appearance. absent: Nystagmus, Scleral icterus - Respiratory Exam Respiratory Exam: Clear to PA & Lateral, NORMAL BREATHING PATTERN. absent: Rales, Rhonchi, Wheezes - Cardiovascular Exam Cardiovascular Exam: REGULAR RHYTHM, +S1, +S2. absent: Tachycardia - GI/Abdominal Exam GI & Abdominal Exam: Normal Bowel Sounds, Soft. absent: Distended, Firm, Guarding, Tenderness - Extremities Exam Extremities exam: normal inspection - Back Exam Back exam: NORMAL INSPECTION. absent: CVA tenderness (L), CVA tenderness (R) - Neurological Exam Neurological exam: Alert, Normal Gait, Oriented x3 - Psychiatric Exam Psychiatric exam: Normal Affect, Normal Mood - Skin Skin Exam: Intact, Normal Color Discharge Plan - Discharge Medications Prescriptions: Ciprofloxacin [Cipro] 250 mg PO DAILY #10 tab - Follow Up Plan Condition: STABLE Disposition: HOME/ ROUTINE Instructions: Kidney Infection (DC), Urinary Tract Infection in Women (DC), Urinary Tract Infection in Men (DC), Dysuria (GEN) Additional Instructions: Patient is stable for discharge to home as per Dr. Smith. Patient is instructed to followup with Dr. Curran 1 week after discharge. Patient should continue taking ciprofloxacin (started 03/23) by mouth once daily for the next 10 days ending on 04/05/2018 for the whole 14 day course as recommended by Dr. Curran. Patient is instructed to return to the hospital if symptoms recur or worsen. Patient understands and agrees to the plan as above. Referrals: Wesley Curran MD [Staff Provider] - <Waylon Smith - Last Filed: 03/26/18 14:57> Provider - Provider Date of Admission: 03/25/18 16:01 Attending physician: Waylon Smith, Hospital Course - Lab Results Lab Results: Micro Results 03/23/18 12:13 Blood Blood Culture - Final Escherichia Coli 03/23/18 12:13 Blood Gram Stain - Final 03/23/18 15:11 Blood Blood Culture - Final Escherichia Coli 03/23/18 15:11 Blood Gram Stain - Final 03/23/18 12:12 Urine Urine Culture - Final Escherichia Coli Most Recent Lab Values WBC 6.3 K/uL (4.8-10.8) 03/26/18 09:22 RBC 4.40 Mil/uL (4.40-5.90) 03/26/18 09:22 Hgb 12.2 g/dL (12.0-18.0) 03/26/18 09:22 Hct 36.1 % (35.0-51.0) 03/26/18 09:22 MCV 82.1 fL (80.0-94.0) 03/26/18 09: MCH 27.8 pg (27.0-31.0) 03/26/18 09: MCHC 33.9 g/dL (33.0-37.0) 03/26/18 09: RDW 12.9 % (11.5-14.5) 03/26/18 09:22 Plt Count 336 K/uL (130-400) 03/26/18 09: MPV 7.9 fL (7.2-11.7) 03/26/18 09:22 Neut % (Auto) 61.3 % (50.0-75.0) 03/26/18: Lymph % (Auto) 24.8 % (20.0-40.0) 03/26/18: Charles % (Auto) 10.1 % (0.0-10.0) H 03/26/18 09:22 Eos % (Auto) 3.3 % (0.0-4.0) 03/26/18 09: Baso % (Auto) 0.5 % (0.0-2.0) 03/26/18 09: Neut # (Auto) 3.9 K/uL (1.8-7.0) 03/26/18 09: Lymph # (Auto) 1.6 K/uL (1.0-4.3) 03/26/18 09:22 Charles # (Auto) 0.6 K/uL (0.0-0.8) 03/26/18: Eos # (Auto) 0.2 K/uL (0.0-0.7) 03/26/18: Baso # (Auto) 0.0 K/uL (0.0-0.2) 03/26/18 09:22 Neutrophils % (Manual) 82 % (50-75) H 03/23/18 12:12 Band Neutrophils % 4 % (0-2) H 03/23/18 12:12 Lymphocytes % (Manual) 5 % (20-40) L 03/23/18 12:12 Monocytes % (Manual) 9 % (0-10) 03/23/18 12:12 Platelet Estimate Normal (NORMAL) 03/23/18 12:12 RBC Morphology Normal 03/23/18 12:12 APTT 35 SECONDS (21-34) H 03/24/18 07:15 pO2 26 mm/Hg (30-55) L 03/23/18 15:21 VBG pH 7.39 (7.32-7.43) 03/23/18 15:21 VBG pCO2 42 mmHg (40-60) 03/23/18 15:21 VBG HCO3 23.8 mmol/L 03/23/18 15:21 VBG Total CO2 26.7 mmol/L (22-28) 03/23/18 15:21 VBG O2 Sat (Calc) 54.1 % (40-65) 03/23/18 15:21 VBG Base Excess 0.3 mmol/L (0.0-2.0) 03/23/18 15:21 VBG Potassium 3.8 mmol/L (3.6-5.2) 03/23/18 15:21 Sodium 136.0 mmol/l (132-148) 03/23/18 15:21 Chloride 103.0 mmol/L (98-107) 03/23/18 15:21 Glucose 241 mg/dl (75-110) H 03/23/18 15:21 Lactate 1.0 mmol/L (0.7-2.1) 03/23/18 15:21 Sodium 137 mmol/L (132-148) 03/26/18 09:22 Potassium 3.6 mmol/L (3.6-5.2) 03/26/18 09:22 Chloride 102 mmol/L (98-107) 03/26/18 09:22 Carbon Dioxide 25 mmol/L (22-30) 03/26/18 09:22 Anion Gap 14 (10-20) 03/26/18 09:22 BUN 6 mg/dL (9-20) L 03/26/18 09:22 Creatinine 0.4 mg/dL (0.8-1.5) L 03/26/18 09:22 Est GFR ( Amer) > 60 03/26/18 09:22 Est GFR (Non-Af Amer) > 60 03/26/18 09:22 POC Glucose (mg/dL) 301 mg/dL (65-110) H 03/26/18 11:04 Random Glucose 328 mg/dL (75-110) H 03/26/18 09:22 Hemoglobin A1c 11.3 % (4.2-6.5) H 03/25/18 07:28 Calcium 9.1 mg/dl (8.6-10.4) 03/26/18 09:22 Phosphorus 3.5 mg/dL (2.5-4.5) 03/26/18 09:22 Magnesium 1.7 mg/dL (1.6-2.3) 03/26/18 09:22 Total Bilirubin 0.4 mg/dL (0.2-1.3) 03/26/18 09:22 AST 52 U/L (17-59) 03/26/18 09:22 ALT 112 U/L (21-72) H D 03/26/18 09:22 Alkaline Phosphatase 259 U/L (38-126) H D 03/26/18 09:22 Total Protein 6.8 g/dL (6.3-8.3) 03/26/18 09:22 Albumin 3.6 g/dL (3.5-5.0) 03/26/18 09:22 Globulin 3.3 gm/dL (2.2-3.9) 03/26/18 09:22 Albumin/Globulin Ratio 1.1 (1.0-2.1) 03/26/18 09:22 Lipase 98 U/L (23-300) 03/23/18 12:12 Venous Blood Potassium 3.8 mmol/L (3.6-5.2) 03/23/18 15:21 Urine Color Yellow (YELLOW) 03/23/18 12:12 Urine Clarity Hazy (Clear) 03/23/18 12:12 Urine pH 6.0 (5.0-8.0) 03/23/18 12:12 Ur Specific [place] 1.017 (1.003-1.030) 03/23/18 12:12 Urine Protein 1+ mg/dL (NEGATIVE) H 03/23/18 12:12 Urine Glucose (UA) 3+ mg/dL (Normal) H 03/23/18 12:12 Urine Ketones 1+ mg/dL (NEGATIVE) H 03/23/18 12:12 Urine Blood Negative (NEGATIVE) 03/23/18 12:12 Urine Nitrate Negative (NEGATIVE) 03/23/18 12:12 Urine Bilirubin Negative (NEGATIVE) 08/07/18 12:12 Urine Urobilinogen Normal mg/dL (0.2-1.0) 03/23/18 12:12 Ur Leukocyte Esterase 3+ Milly/uL (Negative) H 03/23/18 12:12 Urine WBC (Auto) 568 /hpf (0-5) H 03/23/18 12:12 Urine RBC (Auto) 5 /hpf (0-3) H 03/23/18 12:12 Ur Squamous Epith Cells < 1 /hpf (0-5) 03/23/18 12:12 Urine Bacteria Occ (<OCC) H 03/23/18 12:12 Attending/Attestation - Attestation I have personally seen and examined this patient.: Yes I have fully participated in the care of the patient.: Yes I have reviewed all pertinent clinical information, including history, physical exam and plan: Yes Notes (Text): 03/26/18 14:52 Medical attending: Patient was seen and examined by me. Agree with the above note by the resident The patient was not in any acute distress when we came and evaluated patient. The pain had resolved. He did not have flank pain on exam. The patient as mentioned previously was found to have + E coli that was sensitive to Cipro. He will need to continue taking PO Cipro after he leaves. He is aware he needs to continue to follow up with urology as well Waylon Smith
== END 2018-03-26 14:14 | disposition home or self-care (01) | DRG 321 ==
LOC: C.ER 10:41 → C.9E 14:37 → C.3T 16:44 → OBSVTOIN 03-25 16:01
PROVIDERS: ADMIT Hospitalist; ATTEND Hospitalist
DX: N10 Acute pyelonephritis (principal); E11.9 Type 2 diabetes mellitus without complications; Z82.49 Family history of ischemic heart disease and other diseases of the circulatory system; Z79.4 Long term (current) use of insulin

== ENCOUNTER 2018-07-23 16:18 | Emergency (ER) | payer MEDICAID, OTHER ==
[2018-07-23 16:19] VITALS: BMI 25.0
[2018-07-23 16:36] VITALS: RESP 16; TEMP 98.9; O2SAT 98
--- NOTE | 2018-07-23 16:46 | C.PDOC ---
History Of Present Illness 48 year old male, whose past medical history includes Diabetes, presents to the ED for evaluation of right-sided trapezius and shoulder pain that radiates to right side of neck for around 2 weeks. Patient notes symptoms began after he tried lifting a heavy 80-pound cement at [employer]. Patient reports pain with movement and states it is worse with palpation of the area. He took Motrin yesterday without significant relief. Patient denies fever, chills, neck trauma, extremity numbness/weakness or tingling, or recent Chiropractor visits. Time Seen by Provider: 07/23/18 16:46 Chief Complaint (Nursing): Back Pain History Per: Patient History/Exam Limitations: no limitations Onset/Duration Of Symptoms: Other (two weeks ) Current Symptoms Are (Timing): Still Present Quality Of Discomfort: "Pain" Previous Symptoms: Back Pain (right-sided trapezius), Neck Pain Associated Symptoms: denies: New Weakness, New Numbness Exacerbating Factor(s): Movement, Other (palpation of the area ) Additional History Per: Patient Past Medical History Reviewed: Historical Data, Nursing Documentation, Vital Signs Vital Signs: Last Vital Signs Temp 98.9 F 07/23/18 16:33 Pulse 103 H 07/23/18 16:33 Resp 16 07/23/18 16:33 BP 133/80 07/23/18 16:33 Pulse Ox 98 07/23/18 16:33 - Medical History PMH: Kidney Stones Surgical History: No Surg Hx Family History: States: Unknown Family Hx - Social History Hx Alcohol Use: No Hx Substance Use: No - Immunization History Hx Tetanus Toxoid Vaccination: No Hx Influenza Vaccination: No Hx Pneumococcal Vaccination: No Review Of Systems Musculoskeletal: Positive for: Neck Pain (right-sided), Shoulder Pain (right ), Other (right trapezius pain ) Physical Exam - Physical Exam Appears: Well, Non-toxic, No Acute Distress Skin: Normal Color, Warm, Dry Head: Atraumatic, Normacephalic Eye(s): bilateral: Normal Inspection, PERRL, EOMI Oral Mucosa: Moist Throat: Normal Neck: Normal ROM, No Midline Cervical Tenderness, Supple, No Other (meningeal signs ) Chest: Symmetrical, No Deformity, No Tenderness Cardiovascular: Rhythm Regular Respiratory: Normal Breath Sounds Gastrointestinal/Abdominal: Normal Exam Back: No CVA Tenderness, No Vertebral Tenderness, No Decreased ROM, Paraspinal Tenderness, No Straight Leg Raising, Other (right trapezius tenderness to palpation ) Extremity: Normal ROM (all extremities ), Capillary Refill (less than 2 seconds ), No Deformity, No Swelling Pulses: Left Radial: Normal, Right Radial: Normal Neurological/Psych: Oriented x3, Normal Speech, Normal Cognition, Normal Cranial Nerves, No Cerebellar Signs, Normal Motor, Normal Sensation Gait: Steady Extremity: Right: No Drift, Left: No Drift, Upper: No Drift, Lower: No Drift ED Course And Treatment O2 Sat by Pulse Oximetry: 98 (on RA) Pulse Ox Interpretation: Normal Medical Decision Making Medical Decision Making: Impression: 48 year old male with right-sided trapezius/shoulder and neck pain. Pain reproducible w/ palpation. N/V intact. No parathesias. No fall or trauma. No neck stiffness or meningeal signs. No recent chriopracter usage. No recent MVA. Full ROM. No CP or SOB. Likely MSK pain given recent lifting followed by shoulder pain. Plan: * Flexeril PO * Right shoulder XR * EKG * reassess and disposition Progress: Right shoulder XR and EKG ordered and reviewed. Flexeril PO given. 1821 shoulder XR neg pending ekg 1823 EK,nsr, no stemi pain improved, clear for d/c home. Disposition - Disposition Disposition Time: 18:30 Condition: GOOD Instructions: Muscle Strain Forms: [facility] (Albanian) - Clinical Impression Clinical Impression: Trapezius strain - Scribe Statement The provider has reviewed the documentation as recorded by the Scribe (Cecilia Ibarra) Provider Attestation: All medical record entries made by the Scribe were at my direction and personally dictated by me. I have reviewed the chart and agree that the record accurately reflects my personal performance of the history, physical exam, medical decision making, and the department course for this patient. I have also personally directed, reviewed, and agree with the discharge instructions and disposition.
--- NOTE | 2018-07-23 17:36 | RAD ---
Date of service: 07/23/2018 PROCEDURE: Radiographs of the Right Shoulder HISTORY: R shoulder pain after lifting cement COMPARISON: No prior. FINDINGS: BONES: Normal. No fracture. JOINTS: Normal. Glenohumeral and acromioclavicular joints preserved. No osteoarthritis. SOFT TISSUES: Normal. OTHER FINDINGS: None. IMPRESSION: Normal radiographs of the right shoulder.
[2018-07-23 18:46] VITALS: BP 132/85; PULSE 84
--- NOTE | 2018-07-26 14:50 | CARD ---
APPROVED REPORT Date of service: 07/23/2018 EKG Measurement Heart [id number] <Conclusion> Normal sinus rhythm Normal ECG
== END 2018-07-23 18:45 | disposition home or self-care (01) ==
LOC: C.ER 16:18
DX: S16.1XXA Strain of muscle, fascia and tendon at neck level, initial encounter (principal); X58.XXXA Exposure to other specified factors, initial encounter